=== PATIENT | male | born 1955 | race Caucasian/White ===

== ENCOUNTER 2018-06-17 17:24 | Inpatient (IN) | payer MEDICAID, OTHER ==
[~2018-06-17] VITALS: Ht 172.7 cm; Wt 104.2 kg
[2018-06-17] MEDS ORDERED: ASPIRIN 81 MG TABLET CHEW PO ONE (18:30)
[2018-06-17] MEDS ORDERED: SODIUM CHLORIDE FLUSH 10ML SYR IVF ONE (18:30)
[2018-06-17 18:31] LABS: BASOPHILS # (AUTO) 0.05 x10^3/uL (0-0.1); BASOPHILS % (AUTO) 1 % (0-1); EOSINOPHILS # (AUTO) 0.18 x10^3/uL (0-0.4); EOSINOPHILS % (AUTO) 2 % (1-7); LYMPHOCYTES # (AUTO) 1.97 x10^3/uL (1-3.4); LYMPHOCYTES % (AUTO) 25 % (22-44); MD NO; MEAN CORPUSCULAR HEMOGLOBIN 30.8 pg (27.5-34.5); MEAN CORPUSCULAR HGB CONC 34.6 g/dL (33.2-36.2); MONOCYTES # (AUTO) 1.09 x10^3/uL (0.2-0.8); MONOCYTES % (AUTO) 14 % (2-9); NEUTROPHILS # (AUTO) 4.47 x10^3/uL (1.8-6.8); NEUTROPHILS % (AUTO) 58 % (42-75); PLATELET COUNT 259 x10^3/uL (130-400); RED BLOOD COUNT 5.14 x10^6/uL (4.38-5.82)
[2018-06-17 18:42] LABS: INTERNATIONAL NORMALIZED RATIO 1.02 (0.93-1.1); PROTHROMBIN TIME 10.6 Seconds (9.6-11.5)
[2018-06-17 18:44] LABS: ALBUMIN 3.8 g/dL (3.4-5.0); ANION GAP 10 mmol/L (5-15); CHLORIDE 107 mmol/L (98-107); CREATININE 0.84 mg/dL (0.7-1.3)
[2018-06-17 18:48] LABS: TROPONIN I < 0.015 ng/mL (0.000-0.045)
[2018-06-17] MEDS ORDERED: NITROGLYCERIN SINGLE TAB 0.4 MG SL ONE ×2 (18:51→19:08)
[2018-06-17] MEDS ORDERED: ASPIRIN 81 MG TABLET CHEW ONE (18:51)
[2018-06-17] MEDS: NITROGLYCERIN SINGLE TAB 0.4 MG SL PRN ×3 (18:57→19:20)
[2018-06-17] MEDS ORDERED: MAALOX/HYOSCYAMINE/LIDOCAINE 45 ML BTL ONE (19:30)
[2018-06-17] MEDS ORDERED: MAALOX/HYOSCYAMINE/LIDOCAINE 45 ML BTL PO ONE (19:30)
[2018-06-17] MEDS ORDERED: morphine SULFATE 10 MG/ML, 1ML IVPush PRN (20:00)
[2018-06-17] MEDS ORDERED: ACETAMINOPHEN 325 MG TABLET PO PRN (20:00)
[2018-06-17] MEDS ORDERED: POLYETHYLENE GLYCOL 17 GM PACKET PO PRN (20:00)
[2018-06-17] MEDS ORDERED: ONDANSETRON ODT 4 MG PO PRN (20:00)
[2018-06-17] MEDS ORDERED: BISACODYL 10 MG SUPP PR PRN (20:00)
[2018-06-17] MEDS ORDERED: SODIUM CHLORIDE FLUSH 10ML SYR IVF PRN (20:00)
[2018-06-17] MEDS ORDERED: NITROGLYCERIN 0.4 MG BOTTLE (25 TABS) SL PRN (20:00)
[2018-06-17 20:52] VITALS: BP 120/71
[2018-06-17] MEDS: HEPARIN 5,000 UNITS/ML, 1ML SQ SCH (21:38)
[2018-06-17] MEDS: SODIUM CHLORIDE FLUSH 10ML SYR IVF SCH (21:38)
[2018-06-18 00:56] LABS: TROPONIN I < 0.015 ng/mL (0.000-0.045)
[2018-06-18] MEDS ORDERED: CALCIUM CARBONATE 500 MG TAB.CHEW PO PRN (01:00)
[2018-06-18] MEDS: FAMOTIDINE 20 MG TABLET PO SCH ×2 (01:03→07:56)
[2018-06-18 02:06] VITALS: BP 97/61
[2018-06-18] MEDS: HEPARIN 5,000 UNITS/ML, 1ML SQ SCH ×2 (05:58→12:00)
[2018-06-18] MEDS ORDERED: ASPIRIN 81 MG TABLET EC PO SCH (06:00)
[2018-06-18 06:11] LABS: BASOPHILS # (AUTO) 0.03 x10^3/uL (0-0.1); BASOPHILS % (AUTO) 1 % (0-1); EOSINOPHILS # (AUTO) 0.23 x10^3/uL (0-0.4); EOSINOPHILS % (AUTO) 4 % (1-7); LYMPHOCYTES # (AUTO) 1.46 x10^3/uL (1-3.4); LYMPHOCYTES % (AUTO) 27 % (22-44); MD NO; MEAN CORPUSCULAR HEMOGLOBIN 30.2 pg (27.5-34.5); MEAN CORPUSCULAR HGB CONC 33.8 g/dL (33.2-36.2); MEAN CORPUSCULAR VOLUME 89.3 fL (81-97); MEAN PLATELET VOLUME 8.2 fL (7.4-10.4); MONOCYTES # (AUTO) 0.78 x10^3/uL (0.2-0.8); MONOCYTES % (AUTO) 14 % (2-9); NEUTROPHILS % (AUTO) 55 % (42-75); PLATELET COUNT 233 x10^3/uL (130-400); RED BLOOD COUNT 4.97 x10^6/uL (4.38-5.82); RED CELL DISTRIBUTION WIDTH 12.6 % (9.4-14.8)
[2018-06-18 06:17] LABS: ALANINE AMINOTRANSFERASE 36 U/L (12-78); ALBUMIN 3.3 g/dL (3.4-5.0); ANION GAP 7 mmol/L (5-15); CALCIUM 7.8 mg/dL (8.5-10.1); CHLORIDE 107 mmol/L (98-107); CHOLESTEROL, TOTAL 151 mg/dL (140-239); CREATININE 1.03 mg/dL (0.7-1.3)
[2018-06-18 06:22] LABS: ALKALINE PHOSPHATASE 51 U/L (45-117); BILIRUBIN,TOTAL 0.6 mg/dL (0.2-1.0); CHOL/HDL RATIO 4.6; HDL CHOL % 22 % (26-37); HDL CHOLESTEROL (DIRECT) 33 mg/dL (40-60); LDL CHOLESTEROL,CALCULATED 95 mg/dL (54-169); LDL/HDL RATIO 2.9 (0.5-3.0); TOTAL PROTEIN 6.5 g/dL (6.4-8.2); TRIGLYCERIDES 117 mg/dL (50-200); TROPONIN I < 0.015 ng/mL (0.000-0.045); VLDL CHOLESTEROL 23 mg/dL (0-25)
[2018-06-18 06:57] VITALS: BP 122/83
[2018-06-18] MEDS: SODIUM CHLORIDE FLUSH 10ML SYR IVF SCH (07:57)
[2018-06-18] MEDS ORDERED: REGADENOSON 0.4 MG/5 ML SYRINGE ONE (08:42)
[2018-06-18] MEDS ORDERED: SENNA/DOCUSATE TABLET PO SCH (09:00)
[2018-06-18] MEDS ORDERED: PANT40GR PO (12:56)
[2018-06-18] MEDS ORDERED: [UNRECOGNIZED DRUG - CODE] PO (12:56)
== END 2018-06-18 14:06 | disposition home or self-care (01) | DRG 313 ==
LOC: ED 19:09 → EDIP 19:40 → 5SO 20:33
PROVIDERS: ADMIT Family Medicine; ATTEND Family Medicine
DX: R07.89 Other chest pain (principal); E66.9 Obesity, unspecified; J44.9 Chronic obstructive pulmonary disease, unspecified; K21.9 Gastro-esophageal reflux disease without esophagitis; R09.02 Hypoxemia; Z82.49 Family history of ischemic heart disease and other diseases of the circulatory system; Z87.891 Personal history of nicotine dependence; Z68.34 Body mass index [BMI] 34.0-34.9, adult
CPT/HCPCS: 36415; 71046; 78452; 80048; 80053; 80061; 82040; 83880; 84439; 84443; 84484; 85025; 85610; 85730; 93005; 93017; 99285; G0378; J1644; J2785; A9502; C9898